=== PATIENT | female | born 1960 | race African-American/Black ===

== ENCOUNTER 2018-07-17 13:27 | Inpatient (IN) | payer OTHER ==
[2018-07-17 15:05] VITALS: BMI 32.3
--- NOTE | 2018-07-17 19:41 | HP ---
CIWA Score - Admission Criteria [facility] Guidelines: Admission for Medically Managed Detox: Requires at least one of the followin. CIWA greater than 12 2. Seizures within the past 24 hours 3. Delirium tremens within the past 24 hours 4. Hallucinations within the past 24 hours 5. Acute intervention needed for co occurring medical disorder 6. Acute intervention needed for co occurring psychiatric disorder 7. Severe withdrawal that cannot be handled at a lower level of care (continued vomiting, continued diarrhea, abnormal vital signs) requiring intravenous medication and/or fluids 8. Admission ROS BHS - HPI Chief Complaint: I want help to stop smoking crack Allergies/Adverse Reactions: Allergies Allergy/AdvReac Type Severity Reaction Status Date / Time No Known Allergies Allergy Verified 07/17/18 17:28 History of Present Illness: 57 yo with multiple medical problems: H/ O 6 STROKES- last EPISODE IN 2016, h/ o 5 M.I.: with WITH STENTS placed in 2009. h/o peripheral vascular disease of legs- with limitation of mobility- needs to use a cane. Smokes crack cocaine- about $200-300/day, gets money from . Last use about 1 week ago. Says she wants to stop using b/c she is afraid she will if she continues to use. Pt was last in rehab for cocaine use about 2 years- remained free of cocaine use for about 1 year- restarted for unclear reasons- people/places/things. Pt states she was in a detox facility in [place] for 2 days earlier this month - falsely claiming to them she had a problem with alcohol. She was given medication- librium- after which she had a problem with ?overdose- stopped breathing- and went to ER and was released. Pt lives in [place] and brought here by and sponsor. Exam Limitations: No Limitations, Other (pt does not remember some of the details of her history) - Ebola screening Have you traveled outside of the country in the last 21 days: No Have you had contact with anyone from an Ebola affected area: No Have you been sick,other than usual withdrawal symptoms: No Do you have a fever: No - Review of Systems Neuro: reports: Weakness (R side due to CVA) Patient History - Patient Medical History Hx Anemia: No Hx Asthma: No Hx Chronic Obstructive Pulmonary Disease (COPD): No Hx Cancer: Yes (lung cancer- last year, Dr. Parikh) Hx Cardiac Disorders: Yes (h/o FL and stent placement) Hx Congestive Heart Failure: No Hx Hypertension: Yes (ON MEDICATION) Hx Hypercholesterolemia: No Hx Pacemaker: No HX Cerebrovascular Accident: Yes (X 5 LAST BEING) Hx Seizures: No Hx Dementia: No Hx Diabetes: No Hx Gastrointestinal Disorders: No Hx Liver Disease: No Hx Genitourinary Disorders: No Hx Sexually Transmitted Disorders: No Hx Renal Disease (ESRD): No Hx Thyroid Disease: No Hx Human Immunodeficiency Virus (HIV): No Hx Hepatitis C: No Hx Depression: No Hx Suicide Attempt: No Hx Bipolar Disorder: No Hx Schizophrenia: No - Patient Surgical History Past Surgical History: Yes Hx Cardiac Surgery: Yes (CABG 2009) Hx Lung Surgery: No Hx Breast Surgery: No Hx Breast Biopsy: No Hx Abdominal Surgery: No Hx Appendectomy: No Hx Cholecystectomy: No Hx Genitourinary Surgery: No Hx Section: No Hx Orthopedic Surgery: No Anesthesia Reaction: No - PPD History Date: 08/11/16 - Smoking Cessation Smoking history: Current every day smoker Have you smoked in the past 12 months: Yes Aproximately how many cigarettes per day: 4 Cigars Per Day: 0 Hx Chewing Tobacco Use: No Initiated information on smoking cessation: Yes 'Breaking Loose' booklet given: 07/17/18 - Substance & Tx. History Substance Use Type: Cocaine (crack cocine) Hx Substance Use Treatment: Yes (here for rehab in 2016) Family Disease History - Family Disease History Family Disease History: Diabetes: Mother (HTN), Heart Disease: Mother, Other: Father ( [place]) Admission Physical Exam BHS - Vital Signs Vital Signs: Vital Signs - 24 hr 07/17/18 15:00 Temperature 97 F L Pulse Rate 72 Respiratory 20 Rate Blood Pressure 124/81 - Physical General Appearance: Yes: Within Normal Limits HEENTM: Yes: Within Normal Limits, Pharynx Normal, Other (pt with right side facial weakness, dysarthria) Respiratory: Yes: Lungs Clear Neck: Yes: Within Normal Limits Breast: Yes: Breast Exam Deferred Cardiology: Yes: Within Normal Limits Abdominal: Yes: Within Normal Limits, Protuberent Back: Yes: Within Normal Limits Musculoskeletal: Yes: Other (pt with R sided weakess of face, arms and leg, 4/5 muscle strength upper and lower extr) Extremities: Yes: Other (pt with R sided weakess of face, arms and leg, 4/5 muscle strength upper and lower extr) Lymphatic: Yes: Within Normal Limits - Diagnostic (1) Cocaine dependence, uncomplicated Current Visit: No Status: Chronic (2) History of FL (myocardial infarction) Current Visit: No Status: Chronic (3) History of recurrent TIAs Current Visit: No Status: Chronic (4) Nicotine dependence Current Visit: No Status: Chronic Qualifiers: Nicotine product type: cigarettes Substance use status: uncomplicated Qualified Code(s): F17.210 - Nicotine dependence, cigarettes, uncomplicated BHS Breath Alcohol Content Breath Alcohol Content: 0 Urine Pregancy Test - Result Urine Test Results: Negative- NO Line Present Urine Drug Screen - Results Drug Screen Negative: No Urine Drug Screen Results: BZO-Benzodiazepines Inpatient Rehab Admission - Initial Determination Are CD services needed?: Yes Free of communicable disease: Yes Not in need of hospitalization: Yes - Rehab Admission Criteria Previous failed treatment: Yes Poor recovery environment: Yes Comorbidities: Yes Lacks judgement: No Patient is meeting Inpatient Rehab admission criteria:: Yes (Pt has had several complications of CVA's and FL related to cocaine use)
[2018-07-17] MEDS ORDERED: MENTHOL/PHENOL 1 EACH UD MM PRN ×2 (20:00→20:08)
[2018-07-17] MEDS ORDERED: MAGNESIUM HYDROX 2400MG/30ML ORAL SUSPENSION 30 ML CUP PO PRN ×2 (20:00→20:08)
[2018-07-17] MEDS ORDERED: ACETAMINOPHEN 325 MG TABLET (FP) PO PRN ×2 (20:00→20:08)
[2018-07-17] MEDS ORDERED: IBUPROFEN 400 MG TABLET (FP) PO PRN ×2 (20:00→20:08)
[2018-07-17] MEDS ORDERED: P-EPHED 60MG/TRIPROLIDI 2.5MG TABLET PO PRN ×2 (20:00→20:08)
[2018-07-17] MEDS ORDERED: guaiFENesin/D-METHORPHAN HB 10 ML UNIT-DOSE CUPS PO PRN ×2 (20:00→20:08)
[2018-07-17] MEDS ORDERED: LOPERAMIDE HCL 2 MG CAPSULE PO PRN ×2 (20:00→20:08)
[2018-07-17] MEDS ORDERED: MAG HYDROX/AL HYDROX/SIMETH 30 ML UNIT-DOSE CUP PO PRN ×2 (20:00→20:08)
[2018-07-17] MEDS ORDERED: MAGNESIUM CITRATE 300 ML BOTTLE PO PRN ×2 (20:00→20:08)
[2018-07-17] MEDS ORDERED: MELATONIN 5 MG TABLETS PO PRN ×2 (22:00)
[2018-07-17] MEDS ORDERED: THIAMINE HCL 100 MG TABLET (FP) PO SCH (22:00)
[2018-07-17] MEDS ORDERED: TUBERCULIN PPD 5 TU/0.1ML VIAL ID ONE (22:58)
[2018-07-17] MEDS: METOPROLOL TARTRATE 25 MG TABLET (FP) PO SCH (23:03)
[2018-07-17] MEDS: FERROUS SO4 325 MG TABLET (FP) PO SCH (23:04)
[2018-07-17] MEDS: THIAMINE HCL 100 MG TABLET (FP) PO SCH (23:06)
[2018-07-17] MEDS ORDERED: PT OWN MED DRAWER 7, Y5N ONE (23:46)
[2018-07-18] MEDS ORDERED: ALBUTEROL SO4 0.083% IH SOL 2.5 MG/3 ML VIAL.NEB. NEB ONE (00:19)
[2018-07-18] MEDS: ALBUTEROL SO4 0.083% IH SOL 2.5 MG/3 ML VIAL.NEB. NEB PRN ×2 (00:45→21:28)
[2018-07-18 02:48] LABS: URINE APPEARANCE SLCLOUDY; URINE BILIRUBIN NEGATIVE (<2.0 mg/dL); URINE COLOR YELLOW; URINE GLUCOSE (UA) NEGATIVE (NEGATIVE); URINE KETONE NEGATIVE (NEGATIVE); URINE LEUK ESTERASE TRACE (NEGATIVE); URINE NITRITE NEGATIVE (NEGATIVE); URINE PROTEIN NEGATIVE (NEGATIVE); URINE UROBILINOGEN NEGATIVE mg/dL (0.2-1.0)
[2018-07-18 03:10] LABS: EPI CELLS RARE /HPF (FEW); URINE BACTERIA RARE /hpf (NONE SEEN); URINE MUCUS RARE
[2018-07-18] MEDS: ALBUTEROL SO4 8 GM HFA INHALER IH PRN ×2 (05:17→09:19)
[2018-07-18] MEDS: ASPIRIN 81 MG CHEWABLE TABLETS PO SCH (09:17)
[2018-07-18] MEDS: FERROUS SO4 325 MG TABLET (FP) PO SCH ×2 (09:17→21:27)
[2018-07-18] MEDS: PRENATAL VITAMINS W/ FOLIC ACID TABLET (FP) PO SCH (09:18)
[2018-07-18] MEDS: CLOPIDOGREL BISULFATE 75 MG TABLET (FP) PO SCH (09:18)
[2018-07-18] MEDS: ENALAPRIL MALEATE 10 MG TABLET (FP) PO SCH (09:18)
[2018-07-18] MEDS: METOPROLOL TARTRATE 25 MG TABLET (FP) PO SCH ×2 (09:19→21:25)
[2018-07-18] MEDS ORDERED: PRENATAL VITAMINS W/ FOLIC ACID TABLET (FP) PO SCH (10:00)
--- NOTE | 2018-07-18 11:55 | EKG ---
Test Reason : Blood Pressure : / mmHG Vent. Rate : 074 BPM Atrial Rate : 074 BPM P-R Int : 156 ms QRS Dur : 094 ms QT Int : 434 ms P-R-T Axes : 034 064 077 degrees QTc Int : 481 ms NORMAL SINUS RHYTHM CANNOT RULE OUT ANTERIOR INFARCT , AGE UNDETERMINED ABNORMAL ECG NO PREVIOUS ECGS AVAILABLE Confirmed by DANIS GOMEZ MD ([id number]) on 07/18/2018 11:55:15 AM Referred By: Confirmed By:DANIS GOMEZ MD
[2018-07-18] MEDS ORDERED: ALBUTEROL SULFATE IH SCH (14:30)
[2018-07-18 16:12] LABS: HEMATOCRIT 39.9 % (32.4-45.2); HEMOGLOBIN 13.1 GM/dL (10.7-15.3); MCH 28.1 pg (25.7-33.7); MCHC 32.8 g/dl (32.0-36.0); MEAN CELL VOLUME 85.6 fl (80-96); MEAN PLT VOLUME 9.2 fl (7.5-11.1); PLATELET COUNT 272 K/MM3 (134-434); RBC 4.66 M/mm3 (3.60-5.2); RDW 15.1 % (11.6-15.6); WHITE BLOOD COUNT 8.7 K/mm3 (4.0-10.0)
[2018-07-18 16:20] LABS: ALBUMIN 3.4 g/dl (3.4-5.0); ALK PHOS 73 U/L (45-117); ANION GAP 4 MMOL/L (8-16); BILIRUBIN,TOTAL 0.3 mg/dL (0.2-1); BLOOD UREA NITROGEN 14 mg/dL (7-18); CALCIUM 8.7 mg/dL (8.5-10.1); CHLORIDE 106 mmol/L (98-107); CO2 31 mmol/L (21-32); CREATININE 0.9 mg/dL (0.55-1.3); GLUCOSE,RANDOM 120 mg/dL (74-106); POTASSIUM 4.4 mmol/L (3.5-5.1); SGOT/AST 23 U/L (15-37); SGPT/ALT 38 U/L (13-61); SODIUM 141 mmol/L (136-145); TOT PROT 6.2 g/dl (6.4-8.2)
[2018-07-18] MEDS: THIAMINE HCL 100 MG TABLET (FP) PO SCH (21:25)
[2018-07-19] MEDS: ALBUTEROL SO4 8 GM HFA INHALER IH PRN ×3 (01:56→14:11)
[2018-07-19] MEDS: ALBUTEROL SO4 0.083% IH SOL 2.5 MG/3 ML VIAL.NEB. NEB PRN ×3 (02:17→18:53)
[2018-07-19] MEDS: PRENATAL VITAMINS W/ FOLIC ACID TABLET (FP) PO SCH (10:53)
[2018-07-19] MEDS: FERROUS SO4 325 MG TABLET (FP) PO SCH ×2 (10:53→21:19)
[2018-07-19] MEDS: CLOPIDOGREL BISULFATE 75 MG TABLET (FP) PO SCH (10:53)
[2018-07-19] MEDS: ASPIRIN 81 MG CHEWABLE TABLETS PO SCH (10:53)
[2018-07-19] MEDS: ENALAPRIL MALEATE 10 MG TABLET (FP) PO SCH (10:53)
[2018-07-19] MEDS: METOPROLOL TARTRATE 25 MG TABLET (FP) PO SCH ×2 (10:54→21:19)
[2018-07-19] MEDS ORDERED: PT OWN MED DRAWER 7, Y5N ONE (14:10)
--- NOTE | 2018-07-19 15:41 | HP ---
Psychiatrist Admission - Data Date of interview: 07/19/18 Admission source: [facility] Identifying data: This is the second admission to [facility] for this 57 years old AA mother of 2,resides with ,supported by SSD. Medical History: Significant for H/O [place],TIA's,HTN,Hyperlipidemia. Psychiatric History: Patient denies Physical/Sexual Abuse/Trauma History: Patient denies. Vital Signs: Vital Signs - 24 hr 07/19/18 07/19/18 07/19/18 00:30 03:30 08:02 Temperature 97.9 F Pulse Rate 85 Respiratory 16 16 19 Rate Blood Pressure 118/80 07/19/18 09:35 Temperature Pulse Rate 84 Respiratory Rate Blood Pressure 127/81 Allergies/Adverse Reactions: Allergies Allergy/AdvReac Type Severity Reaction Status Date / Time No Known Allergies Allergy Verified 07/17/18 17:28 Date of last physical exam: 07/17/18 Concur with the findings of this exam: Yes - Substance Abuse/Tx History Hx Alcohol Use: Yes (drinking on and off) Hx Substance Use: Yes (cocaine,then crack since 15 yo,spending $200 daily) Substance Use Type: Alcohol, Cocaine Hx Substance Use Treatment: Yes (completed this program in Aug 2016) Mental Status Exam - Mental Status Exam Alert and Oriented to: Time, Place, Person Cognitive Function: Grossly Intact Patient Appearance: Well Groomed Mood: Euthymic Affect: Mood Congruent, Normal Range Patient Behavior: Cooperative Speech Pattern: Clear Voice Loudness: Normal Thought Process: Goal Oriented Thought Disorder: Not Present Hallucinations: Denies Suicidal Ideation: Denies Homicidal Ideation: Denies Insight/Judgement: Fair Sleep: Fair Muscle strength/Tone: Normal Gait/Station: Normal Psychiatric Findings - Problem List ([place] 1, 2,3) (1) Cannabis dependence Current Visit: Yes Status: Chronic (2) Cocaine dependence, uncomplicated Current Visit: Yes Status: Chronic (3) HTN (hypertension) Current Visit: Yes Status: Chronic Qualifiers: Hypertension type: essential hypertension Qualified Code(s): I10 - Essential (primary) hypertension (4) History of [place] (myocardial infarction) Current Visit: Yes Status: Chronic (5) History of recurrent TIAs Current Visit: No Status: Chronic (6) Nicotine dependence Current Visit: Yes Status: Chronic Qualifiers: Nicotine product type: cigarettes Substance use status: uncomplicated Qualified Code(s): F17.210 - Nicotine dependence, cigarettes, uncomplicated - Initial Treatment Plan Initial Treatment Plan: Will monitor progress.
[2018-07-19] MEDS: THIAMINE HCL 100 MG TABLET (FP) PO SCH (21:19)
[2018-07-20] MEDS: PRENATAL VITAMINS W/ FOLIC ACID TABLET (FP) PO SCH (09:54)
[2018-07-20] MEDS: CLOPIDOGREL BISULFATE 75 MG TABLET (FP) PO SCH (09:55)
[2018-07-20] MEDS: ENALAPRIL MALEATE 10 MG TABLET (FP) PO SCH (09:55)
[2018-07-20] MEDS: METOPROLOL TARTRATE 25 MG TABLET (FP) PO SCH ×2 (09:55→22:02)
[2018-07-20] MEDS: ASPIRIN 81 MG CHEWABLE TABLETS PO SCH (09:55)
[2018-07-20] MEDS: FERROUS SO4 325 MG TABLET (FP) PO SCH ×2 (09:56→22:02)
[2018-07-20] MEDS: ALBUTEROL SO4 8 GM HFA INHALER IH PRN ×3 (09:57→22:48)
[2018-07-20] MEDS: THIAMINE HCL 100 MG TABLET (FP) PO SCH (22:02)
[2018-07-21] MEDS ORDERED: PT OWN MED DRAWER 7, Y5N ONE (01:42)
[2018-07-21] MEDS: ALBUTEROL SO4 0.083% IH SOL 2.5 MG/3 ML VIAL.NEB. NEB PRN (02:03)
[2018-07-21] MEDS: ALBUTEROL SO4 8 GM HFA INHALER IH PRN ×4 (06:09→21:43)
[2018-07-21] MEDS: METOPROLOL TARTRATE 25 MG TABLET (FP) PO SCH ×2 (10:55→21:43)
[2018-07-21] MEDS: ENALAPRIL MALEATE 10 MG TABLET (FP) PO SCH (10:55)
[2018-07-21] MEDS: ASPIRIN 81 MG CHEWABLE TABLETS PO SCH (10:55)
[2018-07-21] MEDS: CLOPIDOGREL BISULFATE 75 MG TABLET (FP) PO SCH (10:55)
[2018-07-21] MEDS: PRENATAL VITAMINS W/ FOLIC ACID TABLET (FP) PO SCH (10:55)
[2018-07-21] MEDS: FERROUS SO4 325 MG TABLET (FP) PO SCH ×2 (10:57→21:43)
[2018-07-21] MEDS: THIAMINE HCL 100 MG TABLET (FP) PO SCH (21:43)
[2018-07-22] MEDS: ALBUTEROL SO4 0.083% IH SOL 2.5 MG/3 ML VIAL.NEB. NEB PRN ×2 (01:19→16:00)
[2018-07-22] MEDS: ALBUTEROL SO4 8 GM HFA INHALER IH PRN ×2 (06:22→10:39)
[2018-07-22] MEDS: ENALAPRIL MALEATE 10 MG TABLET (FP) PO SCH (10:37)
[2018-07-22] MEDS: FERROUS SO4 325 MG TABLET (FP) PO SCH ×2 (10:38→21:36)
[2018-07-22] MEDS: CLOPIDOGREL BISULFATE 75 MG TABLET (FP) PO SCH (10:38)
[2018-07-22] MEDS: PRENATAL VITAMINS W/ FOLIC ACID TABLET (FP) PO SCH (10:38)
[2018-07-22] MEDS: ASPIRIN 81 MG CHEWABLE TABLETS PO SCH (10:38)
[2018-07-22] MEDS: METOPROLOL TARTRATE 25 MG TABLET (FP) PO SCH ×2 (10:39→21:35)
[2018-07-22] MEDS: THIAMINE HCL 100 MG TABLET (FP) PO SCH (21:34)
[2018-07-22] MEDS ORDERED: PT OWN MED DRAWER 7, Y5N ONE (22:16)
[2018-07-23] MEDS: ALBUTEROL SO4 0.083% IH SOL 2.5 MG/3 ML VIAL.NEB. NEB PRN ×2 (03:02→09:42)
[2018-07-23] MEDS: ALBUTEROL SO4 8 GM HFA INHALER IH PRN (06:58)
[2018-07-23] MEDS: ASPIRIN 81 MG CHEWABLE TABLETS PO SCH (09:39)
[2018-07-23] MEDS: PRENATAL VITAMINS W/ FOLIC ACID TABLET (FP) PO SCH (09:40)
[2018-07-23] MEDS: METOPROLOL TARTRATE 25 MG TABLET (FP) PO SCH ×2 (09:40→21:27)
[2018-07-23] MEDS: CLOPIDOGREL BISULFATE 75 MG TABLET (FP) PO SCH (09:40)
[2018-07-23] MEDS: ENALAPRIL MALEATE 10 MG TABLET (FP) PO SCH (09:40)
[2018-07-23] MEDS: FERROUS SO4 325 MG TABLET (FP) PO SCH ×2 (09:58→21:27)
[2018-07-23] MEDS: THIAMINE HCL 100 MG TABLET (FP) PO SCH (21:27)
[2018-07-24] MEDS: ALBUTEROL SO4 0.083% IH SOL 2.5 MG/3 ML VIAL.NEB. NEB PRN ×3 (00:31→15:50)
[2018-07-24] MEDS: ALBUTEROL SO4 8 GM HFA INHALER IH PRN ×2 (06:13→10:46)
[2018-07-24] MEDS: CLOPIDOGREL BISULFATE 75 MG TABLET (FP) PO SCH (10:45)
[2018-07-24] MEDS: METOPROLOL TARTRATE 25 MG TABLET (FP) PO SCH ×2 (10:45→21:38)
[2018-07-24] MEDS: PRENATAL VITAMINS W/ FOLIC ACID TABLET (FP) PO SCH (10:45)
[2018-07-24] MEDS: ASPIRIN 81 MG CHEWABLE TABLETS PO SCH (10:45)
[2018-07-24] MEDS: ENALAPRIL MALEATE 10 MG TABLET (FP) PO SCH (10:45)
[2018-07-24] MEDS: FERROUS SO4 325 MG TABLET (FP) PO SCH ×2 (10:45→21:39)
[2018-07-24] MEDS: THIAMINE HCL 100 MG TABLET (FP) PO SCH (21:39)
[2018-07-25] MEDS: ALBUTEROL SO4 0.083% IH SOL 2.5 MG/3 ML VIAL.NEB. NEB PRN (03:45)
[2018-07-25] MEDS: FERROUS SO4 325 MG TABLET (FP) PO SCH ×2 (10:42→21:52)
[2018-07-25] MEDS: PRENATAL VITAMINS W/ FOLIC ACID TABLET (FP) PO SCH (10:42)
[2018-07-25] MEDS: ENALAPRIL MALEATE 10 MG TABLET (FP) PO SCH (10:42)
[2018-07-25] MEDS: ASPIRIN 81 MG CHEWABLE TABLETS PO SCH (10:42)
[2018-07-25] MEDS: METOPROLOL TARTRATE 25 MG TABLET (FP) PO SCH ×2 (10:42→21:53)
[2018-07-25] MEDS: CLOPIDOGREL BISULFATE 75 MG TABLET (FP) PO SCH (10:42)
[2018-07-25] MEDS: ALBUTEROL SO4 8 GM HFA INHALER IH PRN (20:00)
[2018-07-25] MEDS: THIAMINE HCL 100 MG TABLET (FP) PO SCH (21:52)
[2018-07-26] MEDS: ALBUTEROL SO4 0.083% IH SOL 2.5 MG/3 ML VIAL.NEB. NEB PRN ×3 (01:27→21:26)
[2018-07-26] MEDS: ALBUTEROL SO4 8 GM HFA INHALER IH PRN ×3 (06:26→18:37)
[2018-07-26] MEDS: ASPIRIN 81 MG CHEWABLE TABLETS PO SCH (09:31)
[2018-07-26] MEDS: ENALAPRIL MALEATE 10 MG TABLET (FP) PO SCH (09:32)
[2018-07-26] MEDS: FERROUS SO4 325 MG TABLET (FP) PO SCH ×2 (09:32→21:25)
[2018-07-26] MEDS: METOPROLOL TARTRATE 25 MG TABLET (FP) PO SCH ×2 (09:32→21:25)
[2018-07-26] MEDS: PRENATAL VITAMINS W/ FOLIC ACID TABLET (FP) PO SCH (09:32)
[2018-07-26] MEDS: CLOPIDOGREL BISULFATE 75 MG TABLET (FP) PO SCH (09:32)
[2018-07-26] MEDS: THIAMINE HCL 100 MG TABLET (FP) PO SCH (21:25)
[2018-07-27] MEDS: ALBUTEROL SO4 8 GM HFA INHALER IH PRN (00:41)
[2018-07-27] MEDS: ALBUTEROL SO4 0.083% IH SOL 2.5 MG/3 ML VIAL.NEB. NEB PRN (05:19)
[2018-07-27] MEDS: PRENATAL VITAMINS W/ FOLIC ACID TABLET (FP) PO SCH (10:55)
[2018-07-27] MEDS: METOPROLOL TARTRATE 25 MG TABLET (FP) PO SCH ×2 (10:55→21:22)
[2018-07-27] MEDS: FERROUS SO4 325 MG TABLET (FP) PO SCH ×2 (10:55→21:23)
[2018-07-27] MEDS: ASPIRIN 81 MG CHEWABLE TABLETS PO SCH (10:55)
[2018-07-27] MEDS: CLOPIDOGREL BISULFATE 75 MG TABLET (FP) PO SCH (10:55)
[2018-07-27] MEDS: ENALAPRIL MALEATE 10 MG TABLET (FP) PO SCH (10:56)
[2018-07-27] MEDS ORDERED: ALBUTEROL SO4 0.083% IH SOL 2.5 MG/3 ML VIAL.NEB. NEB ONE (17:33)
[2018-07-27] MEDS: THIAMINE HCL 100 MG TABLET (FP) PO SCH (21:22)
[2018-07-27] MEDS ORDERED: PT OWN MED DRAWER 7, Y5N ONE (21:49)
[2018-07-28] MEDS: ALBUTEROL SO4 0.083% IH SOL 2.5 MG/3 ML VIAL.NEB. NEB PRN (02:41)
[2018-07-28] MEDS ORDERED: ALBUTEROL SO4 0.083% IH SOL 2.5 MG/3 ML VIAL.NEB. NEB PRN (06:00)
[2018-07-28] MEDS: ALBUTEROL SO4 8 GM HFA INHALER IH PRN (06:47)
[2018-07-28] MEDS: PRENATAL VITAMINS W/ FOLIC ACID TABLET (FP) PO SCH (10:00)
[2018-07-28] MEDS: CLOPIDOGREL BISULFATE 75 MG TABLET (FP) PO SCH (10:00)
[2018-07-28] MEDS: FERROUS SO4 325 MG TABLET (FP) PO SCH ×2 (10:01→21:33)
[2018-07-28] MEDS: METOPROLOL TARTRATE 25 MG TABLET (FP) PO SCH ×2 (10:01→21:33)
[2018-07-28] MEDS: ENALAPRIL MALEATE 10 MG TABLET (FP) PO SCH (10:01)
[2018-07-28] MEDS: ASPIRIN 81 MG CHEWABLE TABLETS PO SCH (10:01)
[2018-07-28] MEDS: THIAMINE HCL 100 MG TABLET (FP) PO SCH (21:33)
[2018-07-29] MEDS: ALBUTEROL SO4 0.083% IH SOL 2.5 MG/3 ML VIAL.NEB. NEB PRN (01:18)
[2018-07-29] MEDS: ALBUTEROL SO4 8 GM HFA INHALER IH PRN ×2 (06:20→10:40)
[2018-07-29] MEDS: METOPROLOL TARTRATE 25 MG TABLET (FP) PO SCH ×2 (10:38→21:29)
[2018-07-29] MEDS: ENALAPRIL MALEATE 10 MG TABLET (FP) PO SCH (10:38)
[2018-07-29] MEDS: PRENATAL VITAMINS W/ FOLIC ACID TABLET (FP) PO SCH (10:38)
[2018-07-29] MEDS: ASPIRIN 81 MG CHEWABLE TABLETS PO SCH (10:38)
[2018-07-29] MEDS: FERROUS SO4 325 MG TABLET (FP) PO SCH ×2 (10:39→21:29)
[2018-07-29] MEDS: CLOPIDOGREL BISULFATE 75 MG TABLET (FP) PO SCH (10:39)
--- NOTE | 2018-07-29 16:36 | PN ---
Psychiatric Progress Note Vital Signs: Vital Signs Period Temp Pulse Resp BP Sys/Conner Pulse Ox Last 24 Hr 97.6 F 84-86 -18 120-131/74-74 Date of Session: 07/29/18 Chief Complaint:: Discharge visit HPI: Patient addressed Cocaine,Cannabis dependence. ROS: Significant for HTN,H/O TIA. Current Medications: Active Medications Generic Name Dose Route Start Last Admin Trade Name Freq PRN Reason Stop Dose Admin Acetaminophen 650 mg 07/17/18 20:08 Tylenol - PO Q4H PRN FEVER Al Hydroxide/Mg Hydroxide 30 ml 07/17/18 20:08 Mylanta Oral Suspension - PO Q6H PRN DYSPEPSIA Albuterol Sulfate 2 puff 07/18/18 14:53 07/29/18 10:40 Ventolin Hfa Inhaler - IH 2 puff Q4H PRN Administration SHORT OF BREATH/WHEEZING Albuterol Sulfate 1 amp 07/27/18 17:38 07/29/18 01:18 Ventolin 0.083% Nebulizer Soln - NEB 1 amp Q4H PRN Administration SHORT OF BREATH/WHEEZING Aspirin 81 mg 07/18/18 10:00 07/29/18 10:38 Asa - PO 81 mg DAILY MARY CARMEN Administration Clopidogrel Bisulfate 75 mg 07/18/18 10:00 07/29/18 10:39 Plavix - PO 75 mg DAILY MARY CARMEN Administration Enalapril Maleate 5 mg 07/18/18 10:00 07/29/18 10:38 Vasotec - PO 5 mg DAILY MARY CARMEN Administration Eucalyptus/Menthol/Phenol/Sorbitol 1 each 07/17/18 20:08 Cepastat Lozenge - MM Q4H PRN SORE THROAT Ferrous Sulfate 325 mg 07/17/18 22:00 07/29/18 10:39 Feosol - PO Not Given BID MARY CARMEN Guaifenesin 10 ml 07/17/18 20:08 Robitussin Dm - PO Q6H PRN COUGH Loperamide HCl 4 mg 07/17/18 20:08 Imodium - PO Q6H PRN DIARRHEA Magnesium Citrate 300 ml 07/17/18 20:08 Citroma - PO Q48H PRN CONSTIPATION Magnesium Hydroxide 30 ml 07/17/18 20:08 Milk Of Magnesia - PO DAILY PRN CONSTIPATION Melatonin 5 mg 07/17/18 22:00 Melatonin PO HS PRN INSOMNIA Metoprolol Tartrate 25 mg 07/17/18 22:00 07/29/18 10:38 Lopressor - PO 25 mg BID MARY CARMEN Administration Multivit/Folic Acid/Iron 1 tab 07/18/18 10:00 07/29/18 10:38 Vitamins (Sjr) - PO 1 tab DAILY MARY CARMEN Administration Pseudoephedrine/Triprolidine 1 combo 07/17/18 20:08 Actifed - PO TID PRN NASAL CONGESTION Thiamine HCl 100 mg 07/17/18 22:00 07/28/18 21:33 Vitamin B1 - PO 100 mg HS MARY CAREMN Administration Current Side Effect: No Lab tests ordered: No Lab tests reviewed: Yes Provider note:: Patient will complete this program tomorrow.She has met her treatment goals and will continue to address her issues on outpatient basis. Patient identifies areas of difficulties and behaviors which contribute to relapse.Supportive therapy provided focusing on relapse prevention.cipong skills ,support utilization has been discussd with thr patirent as well as other resourses to maintain recovery. Ptienyt is stable for discharge tomorrow. Total face to face time:: 30 Mental Status Exam - Mental Status Exam Alert and Oriented to: Time, Place, Person Cognitive Function: Grossly Intact Patient Appearance: Well Groomed Mood: Euthymic Affect: Appropriate, Mood Congruent, Normal Range Patient Behavior: Cooperative Speech Pattern: Clear Voice Loudness: Normal Thought Process: Goal Oriented Thought Disorder: Not Present Hallucinations: Denies Suicidal Ideation: Denies Homicidal Ideation: Denies Insight/Judgement: Fair Sleep: Fair Appetite: Fair Muscle strength/Tone: Normal Gait/Station: Normal Psychiatric Treatment Plan - Problem List (1) Cannabis dependence Current Visit: Yes (2) Cocaine dependence, uncomplicated Current Visit: Yes (3) HTN (hypertension) Current Visit: Yes Qualifiers: Hypertension type: essential hypertension Qualified Code(s): I10 - Essential (primary) hypertension (4) History of [place] (myocardial infarction) Current Visit: Yes (5) History of recurrent TIAs Current Visit: No (6) Nicotine dependence Current Visit: Yes Qualifiers: Nicotine product type: cigarettes Substance use status: uncomplicated Qualified Code(s): F17.210 - Nicotine dependence, cigarettes, uncomplicated
[2018-07-29] MEDS: THIAMINE HCL 100 MG TABLET (FP) PO SCH (21:29)
[2018-07-29] MEDS ORDERED: PT OWN MED DRAWER 7, Y5N ONE (23:19)
[2018-07-30] MEDS: ALBUTEROL SO4 0.083% IH SOL 2.5 MG/3 ML VIAL.NEB. NEB PRN ×2 (01:17→06:06)
[2018-07-30 07:06] VITALS: BP 168/90; PULSE 98; TEMP 97.1
[2018-07-30] MEDS ORDERED: PT OWN MED DRAWER 7, Y5N ONE (07:09)
== END 2018-07-30 07:15 | disposition home or self-care (01) | DRG 895 ==
LOC: YASAS 13:27 → Y3E 17:50
PROVIDERS: ADMIT Psychiatry & Neurology Psychiatry; ATTEND Psychiatry & Neurology Psychiatry
PROC: HZ42ZZZ Group Counseling for Substance Abuse Treatment, Cognitive-Behavioral (ICD-10-PCS; principal; 2018-07-17)
DX: F14.20 Cocaine dependence, uncomplicated (principal); F12.20 Cannabis dependence, uncomplicated; F17.210 Nicotine dependence, cigarettes, uncomplicated; I10 Essential (primary) hypertension; I25.2 Old myocardial infarction; Z86.73 Personal history of transient ischemic attack (TIA), and cerebral infarction without residual deficits; Z85.118 Personal history of other malignant neoplasm of bronchus and lung; Z95.5 Presence of coronary angioplasty implant and graft
CPT/HCPCS: 36415; 80053; 81003; 81015; 82962; 85027; 86593; 93005; 93010; 94640